=== PATIENT | female | born 1985 | race Hispanic/Latino ===

== ENCOUNTER 2016-07-27 06:20 | Day surgery (SDC) | payer OTHER ==
[2016-07-07 10:45] VITALS: BMI 20.1
[2016-07-27] MEDS ORDERED: ceFAZolin 1 gm FROZEN Premix 1 GM/50 ML ML IVPB ONE (07:19)
[2016-07-27] MEDS ORDERED: Lactated Ringer's 1,000 ML IV ONE (07:40)
[2016-07-27] MEDS ORDERED: Propofol 10 mg/ml Inj (20 ML) ONE (07:45)
[2016-07-27] MEDS ORDERED: Midazolam 2 MG/2 ML VIAL ONE (07:45)
[2016-07-27] MEDS ORDERED: Succinylcholine Chloride 20 mg/ml Syr (5 ml) IV ONE (08:11)
[2016-07-27] MEDS ORDERED: HYDROmorphone 0.5 mg/0.5 ml ISec IVP PRN (08:14)
[2016-07-27] MEDS ORDERED: Acetaminophen/Codeine elixir 120-12mg/5ml PO PRN (08:14)
[2016-07-27] MEDS ORDERED: Dextrose 5%/0.45% NS 1,000 ML IV SCH (08:15)
[2016-07-27] MEDS ORDERED: Lactated Ringer's 1,000 ML IV SCH (08:15)
[2016-07-27 09:47] VITALS: O2SAT 99
--- NOTE | 2016-07-27 09:48 | OP ---
PROCEDURE DATE: 07/27/2016 PREOPERATIVE DIAGNOSIS: Chronic tonsillitis. POSTOPERATIVE DIAGNOSIS: Chronic tonsillitis. PROCEDURE: Tonsillectomy. SIGNIFICANT FINDINGS: 2+ tonsils. DESCRIPTION OF PROCEDURE: The patient was brought in room, placed in supine position. Anesthesia wa s initiated through an ET tube. The patient was draped in the usual manner. Mouth gag was placed in the oral cavity, opened, suspended on the [employer] usual manner. Right tonsil was grasped, pul led medially. Incision was made in the anterior tonsillar pillar using a plasma knife. Dissection w as done between tonsil and tonsillar fossa using a plasma knife until the tonsil was removed. Bleedi ng was controlled using plasma knife. Next, the other tonsil was grasped, pulled medially. Incision was made in the anterior tonsillar pillar using a plasma knife. Dissection was done between tonsil and tonsillar fossa using a plasma knife until the tonsil was removed. Bleeding was controlled using plasma knife. Both tonsillar beds were rubbed vigorously with plasma knife wand. No bleeding was n oted. Mouth gag was let down for 30 seconds, put back up. No bleeding was noted. Mouth gag was nae en down and removed. The patient was taken off anesthesia and taken to recovery room in stable jose l r. Thomas Maloney MD cc: [id number] TT: 07/27/2016 09:47:49 sc
[2016-07-27 10:05] VITALS: PULSE 80
[2016-07-27 11:22] VITALS: BP 114/66; RESP 17; TEMP 97.4
== END 2016-07-27 11:18 | disposition home or self-care (01) ==
LOC: C.SDS 06:20
PROVIDERS: ATTEND Otolaryngology
DX: J35.01 Chronic tonsillitis (principal)
CPT/HCPCS: 42826; 88304; J0690; J1100; J1170; J2250; J2704; J3010; J7120